=== PATIENT | female | born 1945 | race Caucasian/White ===

== ENCOUNTER 2018-11-26 09:24 | Outpatient (CLI) | payer MEDICARE ==
--- NOTE | 2018-11-26 10:22 | ULT ---
THYROID ULTRASOUND: INDICATION: Decreased thyroid function. FINDINGS: Both lobes are mildly heterogeneous. The right lobe measures 4.0 x 1.6 x 1.5 cm and the left lobe me asures 4.2 x 1.4 x 1.6 cm. In the left lobe, there is an isoechoic circumscribed nodule in the mid left lobe measuring 1.6 x 1.0 x 0.7 cm. In the right lobe, there are 2 adjacent hypoechoic nodules. The more superior measures 1.0 x 0.6 x 1 .0 cm. The more inferior measures 1.0 x 1.0 x 1.4 cm. IMPRESSION: 1. Bilateral thyroid nodules. 2. The left lobe nodule is a TIRADS 3 with size less than 2.5 indicating short-term followup. 3. The largest right lung nodule is a TIRADS 4. Since this nodule does measure close to 1.5 cm, fin e needle aspirate of this nodule is recommended. Fine needle aspirate of the left lobe nodule could be performed at the same time. POS: [facility]
== END 2018-11-26 09:25 | disposition home or self-care (01) ==
LOC: MADULT 09:24
PROVIDERS: ATTEND Family Medicine
DX: R94.6 Abnormal results of thyroid function studies (principal); E04.2 Nontoxic multinodular goiter; R91.8 Other nonspecific abnormal finding of lung field
CPT/HCPCS: 76536